=== PATIENT | female | born 1960 | race Caucasian/White ===

== ENCOUNTER 2023-01-01 09:02 | Emergency (ER) | payer MEDICARE, OTHER, SELFPAY ==
--- NOTE | ~2023-01-01 | XR_ITS ---
EXAMINATION: XR finger 2nd LT min 2V DATE: 01/01/2023 11:34 INDICATION: Left hand second digit injury. TECHNIQUE: 4 views of left hand second digit were obtained. COMPARISON: None. FINDINGS: Bone alignment is normal. No fracture. 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 Bandage material overlies the distal digit. IMPRESSION: 1. No fracture. Reviewed, dictated and finalized at location A. IMPRESSION: 1. No fracture.
[2023-01-01 09:08] VITALS: BP 142/103; PULSE 101; RESP 18; TEMP 36.3; O2SAT 99
[2023-01-01] MEDS: ACETAMINOPHEN 500 MG TABLET 1000 MG PO (11:24)
--- NOTE | 2023-01-01 11:48 | ED.WOUNDLAC ---
HPI - Wound/Laceration General Chief Complaint: Wound/Laceration Stated Complaint: Erwin jacobo finger lac Time Seen by Provider: 01/01/23 11:05 History of Present Illness HPI narrative: 62-year-old female reports for evaluation of a laceration to the left index finger that occurred just prior to arrival. Patient reports she was using scissors to cut zip ties and accidentally cut her finger. Reports bleeding was uncontrolled and came to the ED. Wound dressed with pressure bandage. tetanus is up-to-date. No paresthesias, difficulty with range of motion, history of diabetes or vascular disease. Related Data Allergies Allergy/AdvReac Type Severity Reaction Status Date / Time amoxicillin [From Augmentin] Allergy Rash Verified 01/01/23 11:21 clavulanic acid Allergy Rash Verified 01/01/23 11:21 [From Augmentin] morphine Allergy Hives Verified 01/01/23 11:21 erythromycin base AdvReac Rash Verified 01/01/23 11:21 Review of Systems Review of Systems: CONSTITUTIONAL: Denies fever, chills EYES: Denies visual changes, redness, or discharge. ENT: Denies rhinorrhea, congestion, sore throat, or otalgia. CARDIOVASCULAR: Denies chest pain, palpitations, or edema. RESPIRATORY: Denies cough or dyspnea. GASTROINTESTINAL: Denies abdominal pain, nausea, vomiting, or diarrhea. GENITOURINARY: Denies dysuria or hematuria. SKIN: See HPI MUSCULOSKELETAL: Denies back pain, joint pain, or myalgia. NEUROLOGIC: Denies headache, numbness, dizziness, or weakness. PSYCHIATRIC: Denies anxiety or depression. Exam Narrative: GENERAL: Well-appearing, well-nourished, and in no acute distress. HEAD: Normocephalic, atraumatic. NECK: Supple. CHEST: Clear to auscultation. No respiratory distress. No wheezes rales or rhonchi HEART: Regular rate and rhythm. No murmur heard. Normal peripheral pulses. EXTREMITIES: Normal range of motion. No edema. SKIN: 0.5 cm area of avulsion to the distal lateral aspect of the distal phalanx. Mild amount of oozing blood. No nail involvement. Full range of motion of digit. Sensation intact. Cap refill less than 2. Radial pulse 2+. NEURO: No focal deficits. Alert and oriented x3. PSYCH: Normal mood and affect. Course Vital Signs Vital signs: Vital Signs Temperature 97.3 F L 01/01/23 09:08 Pulse Rate 101 H 01/01/23 09:08 Respiratory Rate 18 01/01/23 09:08 Blood Pressure 142/103 H 01/01/23 09:08 Pulse Oximetry 99 01/01/23 09:08 Oxygen Delivery Room Air 01/01/23 09:08 Temperature 97.3 F L 01/01/23 09:08 Pulse Rate 101 H 01/01/23 09:08 Respiratory Rate 18 01/01/23 09:08 Blood Pressure 142/103 H 01/01/23 09:08 Pulse Oximetry 99 01/01/23 09:08 Oxygen Delivery Room Air 01/01/23 09:08 MDM - Wound/Laceration MDM Narrative Medical decision making narrative: 62-year-old female reports for evaluation of a 1.5 cm skin avulsion to the lateral distal aspect of the second distal phalanx that occurred just prior to arrival. Patient neurovascularly intact. Tetanus is up-to-date per patient. X-ray finger without evidence of foreign body. Avulsion irrigated extensively, dressed with bacitracin and a pressure bandage. Bleeding controlled at time of discharge. Antibiotics not administered as patient does not have history of diabetes or vascular compromise. Advised patient to follow-up with primary care provider. Vitals remained stable. Strict ED return precautions provided. Wound care discussed. Patient discharged in stable condition. Medical Records Attestation: I reviewed the patient's medical records. Imaging Data Attestation: I personally reviewed and interpreted this imaging study as follows: Discharge Plan Discharge Clinical Impression: Avulsion of skin Patient Disposition: Home, Self-Care Condition: Stable Instructions: Antibiotic Form, Skin Avulsion (ED) Additional Instructions: Your evaluated in the emergency department today for a skin avulsion to your fing
== END 2023-01-01 12:35 | disposition home or self-care (01) ==
PROVIDERS: Emergency Provider Physician Assistant; PCP Family Medicine
DX: S61.211A Laceration without foreign body of left index finger without damage to nail, initial encounter (principal); W27.2XXA Contact with scissors, initial encounter
CPT/HCPCS: 73140; 99283; A9270